=== PATIENT | female | born 1980 | race African-American/Black ===

== ENCOUNTER 2017-02-04 12:46 | Emergency (ER) | payer BC ==
[~2017-02-04] VITALS: Ht 154.9 cm; Wt 106.5 kg
[~2017-02-04 12:46] MED LIST: PRENTAB26 PO
[2017-02-04 12:49] VITALS: TEMP 37.1; Ht 154.9 cm; Wt 106.5 kg
[2017-02-04 13:10] VITALS: O2SAT 98
[2017-02-04] MEDS ORDERED: SODIUM CHLORIDE 0.9% 1000ML 1,000 ML IV STA (13:18)
--- NOTE | 2017-02-04 13:25 | EMERGENCY ROOM VISIT NOTE ---
History Report prepared by Noemy: Cruzito Garcia Under the Supervision of: Dr. George Mendoza M.D. First contact with patient: 12:57 Chief Complaint: CHEST PAIN Stated Complaint: [facility] Summary: Pt c/o "severe indigestion, I've been belching a lot for 3 days. When I cough I feel like it's taking my breath away. I've had the cough for 6 weeks. And my chest feels so tight. " Had EKG at [facility] Pt c/o congestion and Pain in her forehead bilaterally. History of Present Illness The patient is a 36 year old female who presents to the Emergency Room with complaints of worsening intermittent chest pain for the past three days that feels like tightness that lasts a minute or two. The patient states that she also has had a cough for the past six weeks, and she states that recently it has been taking her breath away. Also, she has indigestion, she has been belching a lot, and she has some nausea. She states that she has been anxious recently, though these are different symptoms from her past anxiety. The patient states that she has some chills, though she denies any fever. The patient denies any sore throat, recent long flights, history of blood clots, or family history of blood clots. She denies any history of cancer, abdominal surgery, heart issues, though her aunt had a heart attack. She states that she got her period last week, and she had dental surgery 8 weeks ago. Additionally, she states that she drinks alcohol almost every day and has a few drinks. Source of History: patient Onset: three days ago Position: chest Quality: other (tightness) Timing: intermittent, worsening Associated Symptoms: + chills, + cough, + nausea, No fevers Note: Associated symptoms: belching Review of Systems See HPI for pertinent positives and negatives. A total of ten systems were reviewed and were otherwise negative. Family History Diabetes mellitus Hypertension Social History Smoking Status: Never Smoker Marital Status: Housing Status: lives with family Occupation Status: employed Current/Historical Medications Scheduled Aspirin (Aspirin), 325 MG PO DAILY Famotidine (Pepcid), 1 TAB PO BID Allergies Coded Allergies: No Known Allergies (Verified Allergy, Unknown, NONE, 04/02/09) Physical Exam Vital Signs Date Time Temp Pulse Resp B/P (MAP) Pulse Ox O2 Delivery O2 Flow Rate FiO2 02/04/17 14:58 89 18 154/107 98 Room Air 02/04/17 14:21 88 18 128/83 98 Room Air 02/04/17 13:49 88 18 124/82 99 Room Air 02/04/17 13:12 96 Room Air 02/04/17 13:10 101 02/04/17 13:10 98 Room Air 02/04/17 12:52 100 Room Air 02/04/17 12:49 37.1 100 20 160/93 100 Room Air Physical Exam GENERAL: Awake, alert, well-appearing, in no distress HENT: Mild tenderness to palpation of the maxillary frontal sinus. Boggy turbinates. Mildly dry mucous membranes. Normocephalic, atraumatic. Oropharynx unremarkable. EYES: Normal conjunctiva. Sclera non-icteric. NECK: Supple. No nuchal rigidity. FROM. No JVD. RESPIRATORY: Clear to auscultation. CARDIAC: Mildly tachycardic rate in the low 100's, normal rhythm. Extremities warm and well perfused. Pulses equal. ABDOMEN: Soft, non-distended. No tenderness to palpation. No rebound or guarding. No masses. RECTAL: Deferred. MUSCULOSKELETAL: Chest examination reveals no tenderness. The back is symmetrical on inspection without obvious abnormality. There is no CVA tenderness to palpation. No joint edema. LOWER EXTREMITIES: Calves are equal size bilaterally and non-tender. No edema. No discoloration. NEURO: Normal sensorium. No sensory or motor deficits noted. SKIN: No rash or jaundice noted. Medical Decision & Procedures ER Provider Diagnostic Interpretation: Radiology results as stated below per my review and radiologist interpretation: CHEST ONE VIEW PORTABLE CLINICAL HISTORY: shortness of breath dyspnea COMPARISON STUDY: No previous studies for comparison. FINDINGS: The bones soft tissues and hemidiaphragms are normal. The cardiomediastinal silhouette is normal. The lungs are clear. The pulmonary vasculature is normal. IMPRESSION: Negative chest. The above report was generated using voice recognition software. It may contain grammatical, syntax or spelling errors. Electronically signed by: David Sargent M.D. 02/04/2017 1:32 PM Dictated Date/Time: 02/04/2017 1:32 PM Laboratory Results 02/04/17 13:00 Red Blood Count 4.73, Mean Corpuscular Volume 71.2, Mean Corpuscular Hemoglobin 21.1, Mean Corpuscular Hemoglobin Concent 29.7, Mean Platelet Volume 10.1, Neutrophils (%) (Auto) 64.8, Lymphocytes (%) (Auto) 25.1, Monocytes (%) (Auto) 6.7, Eosinophils (%) (Auto) 3.0, Basophils (%) (Auto) 0.2, Neutrophils # (Auto) 5.44, Lymphocytes # (Auto) 2.11, Monocytes # (Auto) 0.56, Eosinophils # (Auto) 0.25, Basophils # (Auto) 0.02 02/04/17 13:00 Test 02/04/17 13:00 White Blood Count 8.40 K/uL (4.8-10.8) Red Blood Count 4.73 M/uL (4.2-5.4) Hemoglobin 10.0 g/dL (12.0-16.0) Hematocrit 33.7 % (37-47) Mean Corpuscular Volume 71.2 fL (80-100) Mean Corpuscular Hemoglobin 21.1 pg (25-34) Mean Corpuscular Hemoglobin Concent 29.7 g/dl (32-36) Platelet Count 259 K/uL (130-400) Mean Platelet Volume 10.1 fL (7.4-10.4) Neutrophils (%) (Auto) 64.8 % Lymphocytes (%) (Auto) 25.1 % Monocytes (%) (Auto) 6.7 % Eosinophils (%) (Auto) 3.0 % Basophils (%) (Auto) 0.2 % Neutrophils # (Auto) 5.44 K/uL (1.4-6.5) Lymphocytes # (Auto) 2.11 K/uL (1.2-3.4) Monocytes # (Auto) 0.56 K/uL (0.11-0.59) Eosinophils # (Auto) 0.25 K/uL (0-0.5) Basophils # (Auto) 0.02 K/uL (0-0.2) RDW Standard Deviation 44.3 fL (36.4-46.3) RDW Coefficient of Variation 16.8 % (11.5-14.5) Immature Granulocyte % (Auto) 0.2 % Immature Granulocyte # (Auto) 0.02 K/uL (0.00-0.02) Large Platelets 1+ Hypochromasia PRESENT Microcytosis PRESENT D-Dimer 390 ug/L FEU (0-500) Anion Gap 6.0 mmol/L (3-11) Est Creatinine Clear Calc Drug Dose 114.4 ml/min Estimated GFR () 117.2 Estimated GFR (Non- 101.1 BUN/Creatinine Ratio 11.9 (10-20) Calcium Level 8.7 mg/dl (8.5-10.1) Magnesium Level 1.9 mg/dl (1.8-2.4) Total Bilirubin 0.3 mg/dl (0.2-1) Direct Bilirubin < 0.1 mg/dl (0-0.2) Aspartate Amino Transf (AST/SGOT) 18 U/L (15-37) Alanine Aminotransferase (ALT/SGPT) 31 U/L (12-78) Alkaline Phosphatase 80 U/L (45-117) Troponin I < 0.015 ng/ml (0-0.045) Total Protein 8.4 gm/dl (6.4-8.2) Albumin 3.8 gm/dl (3.4-5.0) Lipase 114 U/L (73-393) Human Chorionic Gonadotropin, Qual NEG (NEG) Laboratory results reviewed by me Medications Administered Medications (Trade) Dose Ordered Sig/Joselyn Route Start Time Stop Time Status Last Admin Dose Admin Sodium Chloride 1,000 ml @ 999 mls/hr Q1H1M STAT IV 02/04/17 13:18 02/04/17 14:18 DC 02/04/17 13:46 999 MLS/HR Al Hydroxide/Mg Hydroxide (Maalox Susp) 30 ml STK-MED ONCE .ROUTE 02/04/17 14:55 02/04/17 14:56 DC 02/04/17 14:55 30 ML Lidocaine HCl (Viscous Lidocaine 2% Soln) 20 ml STK-MED ONCE .ROUTE 02/04/17 14:55 02/04/17 14:56 DC 02/04/17 14:55 20 ML ECG Indication: chest pain Rate (beats per minute): 96 Rhythm: normal sinus Findings: no acute ischemic change, other (Normal axis) ED Course 1302: The patient was evaluated in room A3. A complete history and physical exam was performed. 1318: Sodium Chloride 1000 ml @ 999 mls/hr IV 1455: Viscous Lidocaine 2% Soln 20ml PO, Maalox Susp 30ml PO 1458: I reevaluated the patient. Discussed results and discharge instructions: She verbalized understanding and agreement. The patient is ready for discharge. Medical Decision I reviewed the patient's past medical history, medications, and the nursing notes as described above. Differential diagnosis: Etiologies such as cardiac ischemia, aortic dissection, pulmonary embolism, pneumonia, pneumothorax, musculoskeletal, infections, pericarditis, myocarditis , esophageal rupture, gastrointestinal, as well as others were entertained. Patient presents to emergency department with complaint of chest pain and shortness of breath intermittently over the past 3 days per history of present illness. Arrival the patient appears mildly uncomfortable. No acute distress. Afebrile stable vital signs. EKG and chest x-ray are unremarkable. WBC within normal limits. Troponin and d-dimer negative. The patient she was a hard score of 1 with low cardiac risk factors so ACS likely. Patient is low risk well score and negative d-dimer therefore PE not likely. Considering the patient's frequent belching patient was given a GI cocktail with improvement of her symptoms. Symptoms most likely related to GERD. Findings simply for PCP follow-up discussed with patient and patient was agreeable. Discharged per instructions. Medication Reconcilliation Current Medication List: was personally reviewed by me Blood Pressure Screening Patient's blood pressure: Elevated blood pressure Blood pressure disposition: Elevated BP felt to be situational Impression Primary Impression: Chest pain Additional Impression: GERD (gastroesophageal reflux disease) Scribe Attestation The scribe's documentation has been prepared under my direction and personally reviewed by me in its entirety. I confirm that the note above accurately reflects all work, treatment, procedures, and medical decision making performed by me. Departure Information Dispostion Home / Self-Care Prescriptions Famotidine (PEPCID) 20 Mg Tab 1 TAB PO BID for 14 Days, #28 TAB 5 Refills Prov: George Mendoza M.D. 02/04/17 Referrals Anju Moyer D.O. (PCP) Forms HOME CARE DOCUMENTATION FORM, IMPORTANT VISIT INFORMATION Patient Instructions Chest Pain - [facility], ED GERD, [facility] Additional Instructions Please follow up with your primary care physician in the next 1-3 days. Your exam, lab results, and chest xray did not show signs of an emergent condition. Pepcid as directed. Mucinex and saline nasal spray for nasal congestion as needed. Return to the emergency department for worsening symptoms as described in the accompanying instructions. Problem Qualifiers
[2017-02-04] MEDS ORDERED: ASPI325T45 PO (13:29)
[2017-02-04 13:33] LABS: BASO % 0.2 %; BASO ABS # 0.02 K/uL (0-0.2); HEMATOCRIT 33.7 % (37-47); IG% 0.2 %; LYMPH % 25.1 %; LYMPH ABS # 2.11 K/uL (1.2-3.4); MEAN CELL VOLUME 71.2 fL (80-100); MEAN CORPUSCULAR HEMOGLOBIN 21.1 pg (25-34); MEAN CORPUSCULAR HGB CONC 29.7 g/dl (32-36); MEAN PLATELET VOLUME 10.1 fL (7.4-10.4); MONO % 6.7 %; NEUT % 64.8 %; PLATELET COUNT 259 K/uL (130-400); RED BLOOD COUNT 4.73 M/uL (4.2-5.4)
--- NOTE | 2017-02-04 13:33 | DIAGNOSTIC IMAGING REPORT ---
CHEST ONE VIEW PORTABLE CLINICAL HISTORY: shortness of breath dyspnea COMPARISON STUDY: No previous studies for comparison. FINDINGS: The bones soft tissues and hemidiaphragms are normal. The cardiomediastinal silhouette is normal. The lungs are clear. The pulmonary vasculature is normal. IMPRESSION: Negative chest. The above report was generated using voice recognition software. It may contain grammatical, syntax or spelling errors. Electronically signed by: David Sargent M.D. 02/04/2017 1:32 PM Dictated Date/Time: 02/04/2017 1:32 PM
[2017-02-04 13:48] LABS: ALT/SGPT 31 U/L (12-78); AST/SGOT 18 U/L (15-37); BLOOD UREA NITROGEN 9 mg/dl (7-18); BUN/CREATININE RATIO 11.9 (10-20); CALCIUM 8.7 mg/dl (8.5-10.1); CARBON DIOXIDE 28 mmol/L (21-32); CHLORIDE 105 mmol/L (98-107); CREATININE 0.75 mg/dl (0.60-1.20); GLUCOSE 102 mg/dl (70-99); MAGNESIUM 1.9 mg/dl (1.8-2.4); POTASSIUM 3.4 mmol/L (3.5-5.1); SODIUM 139 mmol/L (136-145)
[2017-02-04 13:52] LABS: PREG INTERNAL NEGATIVE QC NEG CLEAR BACKGROUND; PREG INTERNAL POSITIVE QC POS CONTROL LINE
[2017-02-04 13:53] LABS: ALKALINE PHOSPHATASE 80 U/L (45-117)
[2017-02-04 14:15] LABS: COMPLETE YES; HYPOCHROMIA PRESENT; LARGE PLATELETS 1+; MICROCYTOSIS PRESENT
[2017-02-04] MEDS ORDERED: ALUMINUM/MAGNESIUM SUSP 30 ML UDC ONE (14:55)
[2017-02-04] MEDS ORDERED: LIDOCAINE HCL 2% VISC SOLN 20 ML UDC ONE (14:55)
[2017-02-04 14:58] VITALS: BP 154/107; PULSE 89; O2SAT 98
[2017-02-04] MEDS ORDERED: FAMO20TA9 PO (15:10)
== END 2017-02-04 15:13 | disposition home or self-care (01) ==
LOC: C.EDB 12:48 → C.EDA 15:13
DX: R07.9 Chest pain, unspecified (principal); K21.9 Gastro-esophageal reflux disease without esophagitis; Z79.82 Long term (current) use of aspirin; Z79.899 Other long term (current) drug therapy; Z83.3 Family history of diabetes mellitus; Z82.49 Family history of ischemic heart disease and other diseases of the circulatory system

== ENCOUNTER → 2017-10-24 | Outpatient (CLI) | payer BC ==
[~2017-10-24] MED LIST changes: +ASPECOTC PO; +FAMO20TA9 PO; -PRENTAB26 PO
[2017-10-24 19:18] LABS: ALBUMIN 3.6 gm/dl (3.4-5.0); ALT/SGPT 24 U/L (12-78); AST/SGOT 11 U/L (15-37); BLOOD UREA NITROGEN 11 mg/dl (7-18); CALCIUM 8.8 mg/dl (8.5-10.1); CARBON DIOXIDE 25 mmol/L (21-32); CREATININE 0.73 mg/dl (0.60-1.20); GLUCOSE 96 mg/dl (70-99); POTASSIUM 3.5 mmol/L (3.5-5.1); SODIUM 137 mmol/L (136-145)
[2017-10-24 19:22] LABS: ALKALINE PHOSPHATASE 78 U/L (45-117); TOTAL PROTEIN 8.3 gm/dl (6.4-8.2)
[2017-10-24 19:29] LABS: T3 FREE 2.99 pg/ml (2.30-4.20)
[2017-10-25 08:34] LABS: HEMOGLOBIN A1C 5.3 % (4.5-5.6)
[2017-10-29 17:36] LABS: MICROSOMAL AB 1 IU/ML (<9)
== END | disposition home or self-care (01) ==
LOC: C.LAB 15:17
PROVIDERS: ATTEND Chiropractor
DX: M79.1 Myalgia (principal)

== ENCOUNTER 2020-01-30 05:34 | Inpatient (IN) ==
--- NOTE | 2020-01-29 14:55 | History and Physical Report ---
DATE OF ADMISSION: 01/30/2020 PREOPERATIVE DIAGNOSES: 1. Intrauterine at 39 and 3/7 weeks. 2. Advanced maternal age greater than 40 at delivery. 3. Previous section x2. 4. Fibroid uterus. 5. transverse lie--back up, head on maternal right 6. Desires sterilization. HISTORY OF PRESENT ILLNESS: Aleta is a 39-year-old white female 3, para 2-0-0-2, who presents to labor and delivery for repeat section. The patient has had 2 previous sections,, the last in 2008, and is now having a repeat. She has advanced maternal age, 39 years at delivery. She has had weekly and twice weekly NSTs, which have been reactive and AFIs, which have been normal, and she had a echo, which was within normal limits. The patient has a known fibroid uterus on last imaging scan where they were measured, on 01/21, there was a difficult to measure right fundal fibroid, which was 293 mL. This fibroid has grown slightly during the course of the . The itself has been uncomplicated other than her age and following for the fibroid. She notes good movement, no labor symptoms. No leaking of fluid or vaginal bleeding. Additionally the patient is requesting sterilization. ALLERGIES: She has no known drug allergies. MEDICATIONS: Include albuterol as needed, iron and a vitamin. She stopped her baby asa a few weeks ago. PAST MEDICAL HISTORY: Significant for some asthma. She also has sleep apnea, for which she has an apnea machine. She has a history of positive PPD test, but negative chest x-rays. PAST SURGICAL HISTORY: Includes , wisdom teeth removal and hysteroscopy for removal of polyp. PAST GYNECOLOGIC HISTORY: She denies sexually transmitted diseases or abnormal Pap smears. FAMILY HISTORY: Noncontributory. PHYSICAL EXAMINATION: GENERAL: This is a well-developed, well-nourished white female in no acute distress. VITAL SIGNS: Blood pressure is 124/76, weight is 233 pounds. NECK: Supple without thyromegaly or lymphadenopathy. CHEST: Clear to auscultation bilaterally. CARDIOVASCULAR: Regular rate and rhythm without murmurs, gallops or rubs. BACK: Without costovertebral angle tenderness. ABDOMEN: Soft, gravid, and nontender. EXTREMITIES: Show trace edema but are otherwise benign. LABORATORY DATA: Blood type O positive, antibody negative, Pap negative in 2018. Chlamydia and gonorrhea negative, rubella immune, RPR nonreactive, hepatitis B negative, HIV negative. Glucola x2 normal. Low risk panorama. Negative MSAFP. Declined CF and SMA. GBS negative. COVID test negative on 01/21. ASSESSMENT AND PLAN: This is a 3, para 2-0-0-2, 39-year-old white female who has a at 39 and 3/7 weeks who presents for repeat section and tubal ligation. The risks of the procedure were discussed with the patient including the risks of anesthesia, bleeding requiring transfusion, infection, poor wound healing, damage to surrounding structures including bowel, bladder, vessels, nerves and ureters with need for further surgery, hospitalization or intervention. The risks of any surgery including heart attack, blood clot, stroke or were discussed with the patient. Discussed other options for control including barriers, hormones, ltrc and vasectomy. Discussed failure with ectopic and regret. Consent was reviewed and signed. Questions were answered and surgery is planned for . [facility]
[2020-01-30] MEDS: LACTATED RINGER'S 1,000 ML IV SCH ×2 (06:00→07:05)
[2020-01-30] MEDS ORDERED: CEFAZOLIN 3,000 MG in DEXTROSE 5% 50 ML IV SCH (06:00)
[2020-01-30] MEDS ORDERED: CITRIC ACID/SODIUM CITRATE 15 ML UDC PO SCH (06:00)
[2020-01-30 06:24] LABS: Basophils # (auto) 0.01 K/uL (0-0.2); Basophils % (auto) 0.1 %; Eosinophils % (auto) 0.9 %; Hematocrit (blood only) 40.9 % (37-47); Hemoglobin 14.5 g/dL (12.0-16.0); Immature Granulocytes # (auto) 0.03 K/uL (0.00-0.02); Immature Granulocytes % (auto) 0.3 %; Lymphocytes # (auto) 1.88 K/uL (1.2-3.4); Lymphocytes % (auto) 17.3 %; Mean Corpuscular Hgb Conc 35.5 g/dL (32-36); Mean Corpuscular Volume 87.4 fL (80-100); Mean Platelet Volume 12.5 fL (7.4-10.4); Monocytes # (auto) 0.77 K/uL (0.11-0.59); Monocytes % (auto) 7.1 %; Neutrophils # (auto) 8.09 K/uL (1.4-6.5); Neutrophils % (auto) 74.3 %; Platelet Count 125 K/uL (130-400); Platelet Estimate Decreased (Normal); RBC Morphology Unremarkable; RDW Coefficient of Variation 13.7 % (11.5-14.5); RDW Standard Deviation 43.9 fL (36.4-46.3); Red Blood Count 4.68 M/uL (4.2-5.4); White Blood Count 10.88 K/uL (4.8-10.8)
[2020-01-30 06:56] LABS: Appearance Urine Cloudy (Clear); Bacteria Urine Automated 1+ (Negative); Bilirubin Urine Negative (Negative); Blood Urine 1+ (Negative); Color Urine Yellow; Epithelial Cell Urine Auto >30 /lpf (0-5); Glucose Urine UA Negative (Negative); Ketones Urine 3+ (Negative); Leukocyte Esterase Urine Trace (Negative); Nitrite Urine Negative (Negative); Protein Urine Trace (Negative); Urobilinogen Urine Negative (Negative)
--- NOTE | 2020-01-30 07:20 | History & Physical Bridge Note ---
Date of Service January 30, 2020 History & Physical Bridge Note I have examined the patient, reviewed the History & Physical and in the interval since the performance of the History & Physical I have noted the following changes of clinical significance: no changes noted
--- NOTE | 2020-01-30 07:53 | Anesthesiology Consultation ---
Date of Service January 30, 2020 Assessment & Plan (1) Encounter for pre-operative examination: Chart Review Chart Review: Acceptable Risk for Surgery and Patient NOT seen in Pre Admission Testing Consults Requested none ASA ASA2 Proposed Anesthesia Anesthesia Type: Spinal Risk / Benefits Reviewed With: PT / POA / Parent / Guardian, Accepts Plan and Informed Consent Obtained History Surgery Operation Date: 01/30/20 07:30 Proposed Procedures p Section in CHAIM - Chrissy Miguel MD, FACOG s Post Tubal Ligation Labor & Deliv - Chrissy Miguel MD, FACOG Height/Weight Height: 5 ft 1 in Weight: 105.687 kg Allergies Allergy/AdvReac Type Severity Reaction Status Date / Time No Known Allergies Allergy Unknown NONE Verified 01/27/20 08:46 Medications Home Medications Medication Instructions Recorded Confirmed Last Taken prenat.vits,clemente,[id number] 1 tab PO DAILY 08/05/19 01/27/20 Unknown polysaccharide iron complex 150 mg 200 mg PO DAILY cap 08/11/19 01/27/20 Unknown iron capsule albuterol sulfate 1 puff INHALATION QID PRN 01/27/20 01/27/20 Unknown Active Medications Generic Name Dose Route Start Last Admin Trade Name Freq PRN Reason Stop Dose Admin Lactated Ringer's 1,000 mls @ 999 mls/hr 01/30/20 05:45 01/30/20 07:05 Lr IV 02/29/20 05:44 125 mls/hr .Q1H1M LOVE Administration Cefazolin Sodium 3,000 mg/ 72.5 mls @ 130 mls/hr 01/30/20 06:00 01/30/20 07:47 Dextrose IV 01/30/20 08:00 130 mls/hr PREOP LOVE Administration NPO Date Last Intake of Fluids: 01/29/20 Time Last Intake of Fluids: 23:50 Date Last Intake of Solids: 01/29/20 Time Last Intake of Solids: 23:50 Past Medical History Medical History Asthma rarely uses PRN inh Seasonal allergies Sleep apnea CPAP Uterine fibroid Exercise / Class Metabolic Activity II 4-5 Yardwork/Stairs/Walk up hill Past Family History Family History Father Hypertension Grandmother (Maternal) Dyslipidemia Mother Heart disease Grandfather (Maternal) Diabetes Heart disease Other No family history of adverse response to anesthesia Past Surgical History Surgical History Hx of section x 2 S/P wisdom tooth extraction Status post hysteroscopy Past Anesthesia History No Hx of Anesthesia Complications and No Family Hx of Anesthesia Complications History of PONV No Hx of PONV and No Hx of Motion Sickness Social History Smoking Status: Never smoker Do You Dip or Chew Tobacco: No Hx Alcohol Use: No Alcohol Intake Frequency Comment: not while Hx Substance Use: No substance use type: does not use Physical Exam Vital Signs Last Vital Signs Temp 37.0 C 01/30/20 07:07 Pulse 100 H 01/30/20 07:07 Resp 18 01/30/20 07:07 BP 139/85 01/30/20 07:07 Constitutional + obese ENMT Mouth: no dentition abnormality Thyromental Distance: > or= 3.5 Finger Breadths Mallampati Class: II Neck normal visual inspection Respiratory normal respiratory effort Auscultation: lungs clear to auscultation bilaterally Cardiovascular Rate/Rhythm: regular rate and regular rhythm Psychiatric Orientation: alert Testing Laboratory Results 01/30/20 05:52 Urine Color Yellow 01/30/20 05:30 Urine Appearance Cloudy (Clear) A 01/30/20 05:30 Urine pH 6.0 (4.5-7.5) 01/30/20 05:30 Ur Specific [place] 1.020 (1.000-1.030) 01/30/20 05:30 Urine Protein Trace (Negative) H 01/30/20 05:30 Urine Glucose (UA) Negative (Negative) 01/30/20 05:30 Urine Ketones 3+ (Negative) H 01/30/20 05:30 Urine Nitrite Negative (Negative) 01/30/20 05:30 Ur Leukocyte Esterase Trace (Negative) H 01/30/20 05:30 Urine WBC (Auto) 1-5 /hpf (0-5) 01/30/20 05:30 Urine RBC (Auto) 5-10 /hpf (0-4) H 01/30/20 05:30 U Hyaline Cast (Auto) 1-5 /lpf (0-5) 01/30/20 05:30 U Epithel Cells (Auto) >30 /lpf (0-5) H 01/30/20 05:30 Urine Bacteria (Auto) 1+ (Negative) H 01/30/20 05:30 Blood Type O Positive 01/30/20 05:52 Antibody Screen NEGATIVE 01/30/20 05:52
[2020-01-30] MEDS ORDERED: ONDANSETRON INJ 2 MG/ML 2 ML VIAL ONE (07:54)
[2020-01-30] MEDS ORDERED: OXYTOCIN 10 UNITS/ML VIAL ONE (07:54)
[2020-01-30] MEDS ORDERED: fentaNYL citrate 100 MCG/2 ML VIAL ONE (07:54)
[2020-01-30] MEDS ORDERED: KETOROLAC 30 MG/ML VIAL ONE (07:54)
[2020-01-30] MEDS ORDERED: MoRPHine SULFATE PF 1 MG/ML 10 ML AMP/VIAL ONE (07:54)
[2020-01-30] MEDS ORDERED: PHENYLEPHRINE 100MCG/ML 5ML SYR ONE (08:27)
[2020-01-30 09:02] LABS: Base Excess Cord Venous Blood -1.8 mEq/L (-7.7-1.9); Cord Venous Blood HCO3 24 mmol/L (18.4-26.8); Cord Venous Blood PCO2 44 mmHg (30.4-57.2); Cord Venous Blood PO2 36 mmHg (14.1-43.3); Cord Venous Blood pH 7.35 (7.20-7.44); O2 Saturation Cord Venous Bld 69.5 % (<68)
[2020-01-30 09:07] LABS: Base Excess Cord Arterial Bld -0.8 mEq/L (-9-1.8); CO2 Cord Arterial Blood 60 mmHg (39.1-73.5); HCO3 Cord Arterial Blood 27 mmol/L (19.7-28.5); PO2 Cord Arterial Blood 21 mmHg (4.1-31.7); pH Cord Arterial Blood 7.27 (7.1-7.38)
--- NOTE | 2020-01-30 09:07 | Post Operative Brief Note ---
PG Immediate Post Op with CF Date of Surgery January 30, 2020 Pre & Post Diagnosis Operation Date: 01/30/20 07:30 Pre-Op Diagnosis: Intrauterine at 39 and 3/7 weeks. Advanced maternal age greater than 40 at delivery. Previous section x2. Fibroid uterus. Transverse lie--back up, head on maternal right Desires sterilization. Post-Op Diagnosis: same I identified the patient and participated in the time-out.: Yes Procedure Operation Date: 01/30/20 07:30 Actual Procedures p Repeat Low transverse Section with tubal ligation living female child at 0823 - Chrissy Miguel MD, FACOG s Post Tubal Ligation Labor & Deliv(Bilateral) - Chrissy Miguel MD, FACOG Surgeon Chrissy Miguel MD, FACOG Seo Consultant Dr. Mcdonough Estimated Blood Loss 600 Findings Consistent with Post-Op Diagnosis Specimens Specimen Description: A: Placenta-hold B: cord blood C: artieral cord gas D: venous cord gas E: portion of left fallopian tube F: portion of right fallopian tube Drains Vences Catheter (vences catheter inserted after spinal without difficulty. Vences draining clear yellow urine. urine output to be monitored by anesthesia intraoperatively.) OB Procedure charges OB Charges 10546 C/S w/ Tubal
[2020-01-30 09:09] LABS: Oxygen Sat Cord Arterial Blood < 60.0 % (<60)
[2020-01-30] MEDS ORDERED: MoRPHine SULFATE 2 MG/ML CARP IV PRN (09:19)
[2020-01-30] MEDS ORDERED: DiphenhydrAMINE HCL 50 MG/ML VIAL IV PRN (09:19)
[2020-01-30] MEDS ORDERED: ePHEDrine sulfate 50 MG/ML AMP IV PRN (09:19)
[2020-01-30] MEDS ORDERED: ONDANSETRON INJ 2 MG/ML 2 ML VIAL IV PRN (09:19)
[2020-01-30] MEDS ORDERED: PROMETHAZINE HCL 6.25 MG in SODIUM CHLORIDE 0.9% 50 ML IV PRN (09:19)
[2020-01-30] MEDS ORDERED: MEPERIDINE HCL 25 MG/ML CARP/VIAL IV PRN (09:19)
[2020-01-30] MEDS ORDERED: NALOXONE HCL 0.4 MG/1 ML VIAL/CARP IV PRN (09:19)
[2020-01-30] MEDS ORDERED: NALOXONE HCL 1 MG in SODIUM CHLORIDE 0.9% 1000ML 1,000 ML IV PRN (09:19)
[2020-01-30] MEDS ORDERED: LACTATED RINGER'S 500 ML IV PRN (09:19)
[2020-01-30] MEDS ORDERED: NALOXONE HCL 0.08 MG in SYRINGE 1.8 ML IV PRN (09:19)
[2020-01-30] MEDS ORDERED: HYDROmorphone INJ 0.5 MG/0.5 ML SYR IV PRN (09:19)
[2020-01-30] MEDS ORDERED: MoRPHine SULFATE PF 1 MG/ML 10 ML AMP/VIAL INT SPINAL ONE (09:19)
[2020-01-30] MEDS ORDERED: SODIUM CHLORIDE 0.9% 1000ML 1,000 ML IV SCH (09:30)
[2020-01-30] MEDS ORDERED: NO NARCOTICS OR SEDATIVES SCH (09:30)
[2020-01-30] MEDS ORDERED: DC INTRASPINAL MORPHINE SCH (09:30)
[2020-01-30] MEDS ORDERED: SENNA 8.6 MG TAB PO PRN (11:06)
[2020-01-30] MEDS ORDERED: DIPHTHERIA/TETANUS/PERTUSSIS 0.5 ML SYR/VIAL IM ONE (11:06)
[2020-01-30] MEDS ORDERED: MAGNESIUM HYDROXIDE SUSP 30 ML UDC PO PRN (11:06)
[2020-01-30] MEDS ORDERED: SUPERCREAM 0.870% 15 GM JAR EXT PRN (11:06)
[2020-01-30] MEDS ORDERED: BENZOCAINE 20% AER SPR 82.5 GM CAN EXT PRN (11:06)
[2020-01-30] MEDS ORDERED: HYDROCORTISONE ACETATE 25 MG SUPP PR PRN (11:06)
[2020-01-30] MEDS ORDERED: LACTATED RINGER'S 1,000 ML IV SCH (11:06)
[2020-01-30] MEDS ORDERED: OXYTOCIN 20 UNITS in LACTATED RINGER'S 1,000 ML IV SCH (11:15)
--- NOTE | 2020-01-30 11:26 | Anesthesiology Progress Note ---
Date of Service January 30, 2020 Anesthesia Post Procedure Vital Signs Vital Signs: Temp Pulse Resp BP Pulse Ox 01/30/20 11:21 83 98 01/30/20 11:16 88 97 01/30/20 11:11 89 150/78 H 97 01/30/20 11:06 82 96 01/30/20 11:03 86 148/79 H 01/30/20 11:01 81 161/85 H 98 01/30/20 10:59 83 94 01/30/20 10:56 81 96 01/30/20 10:53 85 149/66 H 01/30/20 10:51 89 187/107 H 95 01/30/20 10:48 92 H 93 01/30/20 10:46 92 H 95 01/30/20 10:41 83 138/81 96 01/30/20 10:36 91 H 97 01/30/20 10:31 90 129/83 96 01/30/20 10:26 79 97 01/30/20 10:21 84 127/72 96 01/30/20 10:16 82 97 01/30/20 10:14 80 148/73 H 01/30/20 10:11 78 18 153/78 H 98 01/30/20 10:06 83 97 01/30/20 10:04 85 18 150/86 H 96 01/30/20 10:02 85 150/86 H 01/30/20 10:01 86 96 01/30/20 09:56 83 96 01/30/20 09:52 81 118/57 L 01/30/20 09:51 81 18 118/57 L 96 01/30/20 09:46 82 96 01/30/20 09:41 85 18 129/74 97 01/30/20 09:36 79 96 01/30/20 09:31 81 18 125/85 96 01/30/20 09:26 83 99 01/30/20 09:25 87 93 01/30/20 09:21 83 18 129/77 98 01/30/20 09:16 89 141/72 H 99 01/30/20 09:11 36.8 C 85 18 141/72 H 99 01/30/20 07:07 37.0 C 100 H 18 139/85 01/30/20 05:59 36.8 C 18 01/30/20 05:49 37.4 C 107 H 20 133/75 Transfer of Care Handoff Completed per policy Notes Mental Status: alert / awake / arousable Nausea / Vomiting: adequately controlled Pain: adequately controlled Airway Patency, RR, SpO2: stable & adequate BP & HR: stable & adequate Hydration State: stable & adequate Neuraxial Anesthesia: was administered and sensory block is resolving Anesthetic Complications: no major complications apparent
--- NOTE | 2020-01-30 11:55 | Operative Report (OR) ---
DATE OF OPERATION: 01/30/2020 PREOPERATIVE DIAGNOSES: 1. Intrauterine at 39+ weeks. 2. History of previous section x2. 3. Fibroid uterus. 4. Desires permanent surgical sterilization. 5. Transverse lie, head right. 6. Advanced maternal age. 7. Rupture of membranes at the time of spinal placement. POSTOPERATIVE DIAGNOSES: 1. Intrauterine at 39+ weeks. 2. History of previous section x2. 3. Fibroid uterus. 4. Desires permanent surgical sterilization. 5. Cephalic presentation. 6. Advanced maternal age. 7. Rupture of membranes at the time of spinal placement. SURGEON: Chrissy Miguel MD. LICENSING REPRESENTATIVE: Dr. Mcdonough. ANESTHESIA: Spinal. ESTIMATED BLOOD LOSS: 600 mL. FLUIDS: 1500 mL. URINE OUTPUT: 250 mL of clear yellow urine draining from the bladder at the end of the procedure. INDICATIONS: The patient is a 3, para 2-0-0-2, with history of a previous section x2. She has advanced maternal age and we have been following growth and nonstress tests on this baby, all of which have been reassuring. She has a fibroid uterus with a fundal fibroid that has slightly grown throughout the procedure and at last ultrasound, the baby was transverse back up, head right. She also desires permanent surgical sterilization. FINDINGS: Globally enlarged uterus with several fibroids noted. Normal tubes and ovaries bilaterally. Delivered a viable female in cephalic presentation, Apgars and weight pending at the time of this dictation. COMPLICATIONS: None. DRAINS: Plata. DISPOSITION: To recovery room in stable condition. DESCRIPTION OF PROCEDURE: The patient was taken to the operating room where she was identified verbally and by bracelet. She was seated on the operating table where spinal anesthetic was placed. She was then placed in dorsal supine position with a leftward tilt. A Plata catheter was placed sterilely and she was prepped and draped in normal sterile fashion. Timeout was held, identifying correct patient, procedure, preoperative antibiotic. There were no concerns. A Pfannenstiel skin incision was made with a knife over the previous incision and taken down to the underlying layer of fascia with the knife. Bleeding was attended to with Bovie electrocautery. The knife was used to excise the fascia in the midline and both knife and scissors were used to take out the fascia laterally. The superior edge of the fascial incision was grasped, elevated and the underlying layer of rectus muscle was taken off bluntly and with scissors. In a similar fashion, the inferior layers of the fascial incision was grasped, elevated and the underlying layer of rectus muscle was taken off bluntly and with scissors. The midline was identified, it was grasped bilaterally with snaps and entered sharply with the knife. Peritoneal entry was obtained. An nipping machine operator's finger was placed through this opening and there were no adhesions noted. This opening was taken superiorly and inferiorly with good visualization of the bladder and the incision was then stretched. A bladder flap was then created sharply, but staying high, a hysterotomy incision was made with the knife and it was scored with a knife and then was eventually entered with a snap. There was clear fluid noted. The incision was stretched. The nipping machine operator's hand was placed into the incision and the head was found to be presenting. This was elevated and lifted through the hysterotomy incision gently, and then with fundal pressure, the rest of the infant was delivered. There was no nuchal cord. The nose and mouth were bulb suctioned and the rest of the was then delivered without difficulty. The cord was clamped and cut, and the was handed off to the awaiting pediatricians for drying and attention. Cord blood and gases were obtained. The placenta was expressed from the uterus. The uterus was exteriorized and cleared of all clot and debris with moistened laparotomy sponges. The hysterotomy incision was repaired in 2 layers, the first in a running locked layer, second in an imbricating layer. Two rstxcy-qt-cemgm sutures were needed for hemostasis. The posterior cul-de-sac was irrigated and cleared of all clot and debris. Attention was then turned to the tubes where first on the left and then on the right, a knuckle of tube was grasped with a Alger clamp. It was sutured x2 and then the tubal segment was removed with scissors. The edges were attended to with Bovie electrocautery. These tubal segments were handed off for pathology. Attention was then returned to the hysterotomy incision, which appeared hemostatic. The uterus was reanteriorized and then a sponge was placed over the hysterotomy incision because there was bleeding from the rectus muscles that was noted up high on the right. These bleeding areas were found. They were grasped with Allis clamps and then [id number] sutures were placed through these areas until hemostasis was assured. Attention was then returned to the hysterotomy incision. There were some bleeding peritoneal edges that needed some asyrfm-co-hrqep sutures of 3-0 Vicryl until hemostasis was assured. The gutters were cleared of all clot and debris. The tubal sites were again investigated and stitches were found to be intact. The rectus muscles were again examined and hemostasis was noted. The fascia was then reapproximated with 0 Vicryl starting at the edges and meeting in the midline. The subcuticular tissue was copiously irrigated with warm normal saline and bleeding was attended to with Bovie electrocautery. The skin was then closed with 4-0 Vicryl in subcuticular fashion. All sponge, lap and needle counts were correct x2. The patient tolerated the procedure well and was taken to recovery room in stable condition. Of note, when the patient sat for her epidural, it is suspected that she had a spontaneous rupture of membranes because as she was laid down for placement of her Plata catheter, she was noted to be sitting in a puddle of fluid and fluid was noted to be coming from the vagina, not from the urethra, so she did have SROM for clear fluid just prior to her section. I attest to the content of the Intraoperative Record and any orders documented therein. Any exception s are noted below.
[2020-01-30] MEDS: KETOROLAC 30 MG/ML VIAL IV PRN ×2 (15:36→21:23)
[2020-01-30] MEDS: SIMETHICONE 80 MG CHEW PO SCH ×2 (17:42→21:22)
[2020-01-30] MEDS ORDERED: LACTATED RINGER'S 1,000 ML IV PRN (19:13)
[2020-01-30] MEDS: DOCUSATE SODIUM 100 MG CAP PO SCH (21:22)
[2020-01-31] MEDS ORDERED: KETOROLAC 30 MG/ML VIAL IV PRN (03:20)
[2020-01-31] MEDS ORDERED: ONDANSETRON INJ 2 MG/ML 2 ML VIAL IV PRN (03:20)
[2020-01-31] MEDS ORDERED: MEPERIDINE HCL 50 MG/ML CARP IV PRN (03:20)
[2020-01-31] MEDS ORDERED: PROMETHAZINE HCL 25 MG in SODIUM CHLORIDE 0.9% 50 ML IV PRN (03:20)
[2020-01-31] MEDS ORDERED: DiphenhydrAMINE HCL 50 MG/ML VIAL IV PRN (03:20)
--- NOTE | 2020-01-31 07:05 | Obstetrical Progress Note ---
Date of Service <Eriberto Howard MD - Last Filed: 01/31/20 07:05> January 31, 2020 Assessment & Plan <Eriberto Howard MD - Last Filed: 01/31/20 07:05> (1) Supervision of elderly multigravida: - Feels well today. Eating well, ambulating well. - Pain well controlled with analgesics. - Routine post care - After discharge will have 6 week followup. Subjective <Eriberto Howard MD - Last Filed: 01/31/20 07:05> Aleta is a 39 y/o female ; POD #1 following delivery; doing well this morning; light abdominal cramping & 0/10 pain; has yet to void, as her catheter was taken out just this morning; tolerating meals overnight and able to ambulate some. Has some persistent lochia with some improvement this morning. Breast feeding well. Rubella immune. Blood type O positive. Review of Systems Constitutional: denies fever, chills, sweat, headache Respiratory: denies shortness of breath, difficulty breathing Cardiac: denies chest pain, palpitations, chest pressure Breast: denies breast pain : denies dysuria Physical Exam <Eriberto Howard MD - Last Filed: 01/31/20 07:05> General: Alert, oriented. No acute distress. Cardiac: Regular rate and rhythm, no murmurs/rubs/gallops. Respiratory: Clear to auscultation bilaterally a/p, no wheezes/rales/rhonchi. No increased work of breathing. Symmetrical chest rise. No respiratory distress. Abdomen: Soft, nontender, nondistended. Bowel sounds present. Uterus: Uterine fundus firm, palpable 1cm below umbilicus. Surgical scar clean and healing well. Lower Extremities: No lower extremity edema or swelling. No deep calf pain. Art's negative bilaterally. Results & Data <Eriberto Howard MD - Last Filed: 01/31/20 07:05> Vital Signs (Past 12 Hours) Vital Signs Temp Pulse Resp BP Pulse Ox 01/31/20 04:00 36.7 C 97 H 18 135/88 99 01/31/20 03:15 18 97 01/31/20 02:15 18 95 01/31/20 01:15 18 96 01/31/20 00:15 18 95 01/30/20 23:15 36.7 C 94 H 18 120/85 96 01/30/20 22:45 15 98 01/30/20 21:45 16 97 01/30/20 20:45 16 99 01/30/20 19:45 37.1 C 97 H 17 139/88 98 <Joan Deleon MD, FACOG - Last Filed: 02/02/20 08:43> Co-Signing Physician Notes Resident Physician Supervision Note: I interviewed and examined the patient. Discussed with Dr. Pisano and agree with findings and plan as documented in the note. Any exceptions or clarif ications are listed here: [None] Documented By: Joan Deleon MD, FACOG Resident Activity Tracking <Eriberto Howard MD - Last Filed: 01/31/20 07:05> Resident Involvement: Resident Care Provided Care Provided: OB Delivery
[2020-01-31 07:07] LABS: Hematocrit (blood only) 33.6 % (37-47); Hemoglobin 11.5 g/dL (12.0-16.0); Mean Corpuscular Hemoglobin 30.3 pg (25-34); Mean Corpuscular Hgb Conc 34.2 g/dL (32-36); Mean Corpuscular Volume 88.4 fL (80-100); Mean Platelet Volume 12.5 fL (7.4-10.4); Platelet Count 94 K/uL (130-400); RDW Coefficient of Variation 13.7 % (11.5-14.5)
[2020-01-31 07:21] LABS: Basophils # (auto) 0.01 K/uL (0-0.2); Basophils % (auto) 0.1 %; Eosinophils # (auto) 0.13 K/uL (0-0.5); Eosinophils % (auto) 1.1 %; Giant Platelets 1+; Immature Granulocytes # (auto) 0.04 K/uL (0.00-0.02); Immature Granulocytes % (auto) 0.3 %; Lymphocytes # (auto) 0.91 K/uL (1.2-3.4); Lymphocytes % (auto) 7.7 %; Monocytes % (auto) 6.8 %; Neutrophils # (auto) 9.91 K/uL (1.4-6.5)
[2020-01-31] MEDS: SIMETHICONE 80 MG CHEW PO SCH ×3 (07:38→20:44)
[2020-01-31] MEDS: DOCUSATE SODIUM 100 MG CAP PO SCH ×2 (07:39→20:44)
[2020-01-31] MEDS: PRENATAL VITAMIN 1 TAB PO SCH (07:39)
[2020-01-31] MEDS: OXYCODONE/ACETAMINOPHEN 5mg/325mg TAB PO PRN ×3 (11:14→20:44)
[2020-01-31] MEDS: IBUPROFEN 600 MG TAB PO PRN ×3 (11:14→20:44)
[2020-02-01] MEDS: OXYCODONE/ACETAMINOPHEN 5mg/325mg TAB PO PRN ×2 (05:20→12:35)
[2020-02-01] MEDS: IBUPROFEN 600 MG TAB PO PRN ×2 (05:21→12:35)
[2020-02-01 06:44] LABS: Hematocrit (blood only) 33.9 % (37-47); Hemoglobin 11.4 g/dL (12.0-16.0)
--- NOTE | 2020-02-01 07:03 | Obstetrical Progress Note ---
Date of Service February 01, 2020 Assessment & Plan (1) S/P section: doing well. Pain controlled. Plan d/c. Instructions given. Day #:: 2 Subjective Ambulation: ambulating normally Voiding: no voiding problems Passing Gas:: Yes Diet Tolerance:: regular diet Lochia:: Small Feeding Type:: breast feeding Pain controlled. Desires d/c today. Physical Exam Constitutional WD/WN, vitals as above Cardiovascular Extremities: + edema (+1, pitting); no calf tenderness Gastrointestinal (Abdomen) soft, nt, nd Incision --slight d/c, clean, intact ff/ appropriately tender at u Psychiatric A+Ox3, euthymic affect Results & Data ([facility]) Vital Signs (Past 12 Hours) Vital Signs Temp Pulse Resp BP 02/01/20 03:00 36.5 C 97 H 18 123/85 01/31/20 20:15 36.5 C 98 H 18 130/84
[2020-02-01] MEDS: SIMETHICONE 80 MG CHEW PO SCH ×2 (08:20→08:25)
[2020-02-01] MEDS: DOCUSATE SODIUM 100 MG CAP PO SCH (08:25)
[2020-02-01] MEDS: PRENATAL VITAMIN 1 TAB PO SCH (08:25)
[2020-02-01 10:33] VITALS: BP 126/86; TEMP 97.9; O2SAT 98
[2020-02-01 11:33] VITALS: PULSE 88
--- NOTE | 2020-02-03 06:04 | Discharge Summary (DS) ---
ADMISSION DIAGNOSES: 1. Intrauterine at 39 and 3/7 weeks. 2. Advanced maternal age greater than 40 at delivery. 3. Previous section x2. 4. Fibroid uterus. 5. Transverse lie backup, head on maternal right. 6. Desires permanent surgical sterilization. DISCHARGE DIAGNOSES: 1. Intrauterine at 39 and 3/7 weeks. 2. Advanced maternal age greater than 40 at delivery. 3. Previous section x2. 4. Fibroid uterus. 5. Transverse lie backup, head on maternal right, cephalic presentation. 6. Desires permanent surgical sterilization. PROCEDURES: Repeat lower transverse section. HISTORY: Aleta is a 39-year-old white female 3, para 2-0-0-2, who presents to labor and delivery for repeat section. She has had 2 previous sections, the last in 2008 and is now having a repeat. She has advanced maternal age, 39 years at delivery. She has had weekly and twice weekly NSTs, which have been reactive and AFIs, which have been normal. She had a normal echo. The patient has a known fibroid uterus on last imaging scan where they measured the right fundal fibroid to be 293 mL. This fibroid has grown slightly during the course of the . The itself has been uncomplicated other than her age and following the fibroid. For the rest of the patient's detailed history and physical, please see her history and physical. ASSESSMENT: This is a 3, para 2-0-0-2, 39-year-old white female with a at 39 and 3/7 weeks who presents for repeat section and tubal ligation. The patient underwent a repeat section with bilateral modified [place] tubal ligation without difficulty. ESTIMATED BLOOD LOSS: 600 mL. The patient's postoperative course was uncomplicated. She tolerated a regular diet, ambulated without difficulty, voided after the removal of her Plata catheter and her pain was well controlled with oral pain medications. Her discharge H and H was 11.4 and 33.9. She was discharged on postoperative day #2, to return in 6 weeks for postoperative exam.
== END 2020-02-01 14:05 | disposition home or self-care (01) | DRG 784 ==
LOC: 4S1 05:34 → EDSTATUS 07:30 → 4S2 15:56
PROC: M.PPTLD (2020-01-30 07:30)